=== PATIENT | female | born 1935 | race Hispanic/Latino ===

== ENCOUNTER 2017-11-05 15:08 | Outpatient (CLI) | payer MEDICARE, OTHER ==
--- NOTE | 2017-11-05 16:38 | XRay Report ---
XRAY RIGHT KNEE 3 THREE VIEWS: 11/05/17 15:08:00 CLINICAL: Right knee pain. FINDINGS: No fracture or dislocation. Osteoarthritis with greater involvement of the lateral joint space. Narrowing of the lateral joint space with moderately large osteophytes. Small medial osteophytes. Patellofemoral osteoarthritis with large osteophytes. No joint effusion. Normal soft tissues. IMPRESSION: Moderate osteoarthritis with greater involvement of the lateral joint space and patellofemoral joint.
--- NOTE | 2017-11-05 16:39 | XRay Report ---
XRAY RIGHT HIP TWO VIEWS: 11/05/17 15:08:00 CLINICAL: Right hip pain. FINDINGS: No fracture or dislocation.No bone lesion. Minimal arthritis of the hip. The pelvic bones are intact. Minimal arthritis of the left hip. Mild bilateral SI joint sclerosis with no erosions. Normal soft tissues. IMPRESSION: Minimal hip arthritis.
--- NOTE | 2017-11-05 16:41 | XRay Report ---
XRAY LUMBAR SPINE THREE VIEWS: 11/05/17 15:08:00 CLINICAL: Back pain and history of colon cancer. FINDINGS: Moderate dextroscoliosis. Normal vertebral body height and alignment. Disc space narrowing at L1-2 and L2-3 with vacuum disc phenomenon and large anterior osteophytes at those levels. L5-S1 disc space narrowing. Small anterior osteophytes at L3-4. Multilevel facet joint sclerosis. The pedicles are intact. No fracture. Benign soft tissue calcifications. Bilateral SI joint sclerosis with no erosions. IMPRESSION: Scoliosis and multilevel degenerative disease and facet joint arthropathy. Bilateral sacroiliitis. No suspicious bone lesion.
== END 2017-11-05 15:09 | disposition home or self-care (01) ==
LOC: SPVIMAG 15:08
PROVIDERS: ATTEND Internal Medicine Hematology & Oncology
DX: M16.11 Unilateral primary osteoarthritis, right hip (principal); M17.11 Unilateral primary osteoarthritis, right knee; M51.37 Other intervertebral disc degeneration, lumbosacral region; M41.87 Other forms of scoliosis, lumbosacral region; M46.1 Sacroiliitis, not elsewhere classified; Z85.038 Personal history of other malignant neoplasm of large intestine
CPT/HCPCS: 72100